=== PATIENT | male | born 1955 | race Asian ===

== ENCOUNTER 2019-07-04 12:49 | Emergency (ER) | payer SELFPAY ==
[~2019-07-04] VITALS: Ht 157.5 cm; Wt 72.0 kg
[2019-07-04] MEDS ORDERED: LIDOCAINE HCL 1% 20ML VIAL (Pyxis) INJ INFIL ONE (14:30)
[2019-07-04] MEDS ORDERED: CEFTRIAXONE SODIUM 1 G/VIAL IM ONE (14:30)
[2019-07-04] MEDS ORDERED: NEOMYCIN-POLYMYXIN-HYDROCORTISONE 1% OTIC SUSP 10ML EACH EAR ONE (14:45)
[2019-07-04 15:30] VITALS: BP 162/92
== END 2019-07-04 15:31 | disposition home or self-care (01) ==
LOC: ER 12:49
DX: H60.93 Unspecified otitis externa, bilateral (principal)
CPT/HCPCS: 96372; 99283; J0696; J3490